=== PATIENT | female | born 1990 | race African-American/Black ===

== ENCOUNTER 2018-11-19 13:12 | Emergency (ER) | payer OTHER ==
[2018-11-19] MEDS: SOD CHLORIDE 0.9% 1,000 ML IV (14:54)
[2018-11-19] MEDS: KETOROLAC 30 MG INJ IV (14:55)
[2018-11-19] MEDS: PROCHLORPERAZINE 10 MG INJ IV (14:55)
[2018-11-19] MEDS: DIPHENHYDRAMINE 50 MG INJ IV (14:55)
== END 2018-11-19 15:55 | disposition home or self-care (01) ==
LOC: E/R 13:12
DX: G40.909 Epilepsy, unspecified, not intractable, without status epilepticus (principal); F17.210 Nicotine dependence, cigarettes, uncomplicated; R51 Headache
CPT/HCPCS: 81025; 96361; 96374; 96375; 99284-25